=== PATIENT | female | born 1945 | race Caucasian/White ===

== ENCOUNTER → 2025-02-13 14:14 | Outpatient (REF) | payer MEDICARE, SELFPAY ==
[2025-02-13 16:31] LABS: INR 4.42; PT 41.6 Sec (11.4-14.6)
== END ==
LOC: REG 14:14
PROVIDERS: FAMILY PHYSICIAN Physician Assistant
DX: Z79.01 Long term (current) use of anticoagulants (principal)
CPT/HCPCS: 36415; 85610

== ENCOUNTER → 2025-03-13 13:57 | Outpatient (REF) | payer MEDICARE, SELFPAY ==
[2025-03-13 14:55] LABS: INR 1.79
== END ==
LOC: REG 13:57
PROVIDERS: ATTENDING PHYSICIAN Physician Assistant
DX: Z79.01 Long term (current) use of anticoagulants (principal); I48.0 Paroxysmal atrial fibrillation
CPT/HCPCS: 36415; 85610

== ENCOUNTER → 2025-03-27 07:34 | Outpatient (REF) | payer MEDICARE, SELFPAY ==
[2025-03-27 08:06] LABS: % Basophils 1.1 % (0-2); % Eosinophils 2.6 % (0-6); % Immature Granulocytes 0.2 % (0-0.5); % Lymphocytes 29.7 % (20.5-51.1); % Monocytes 7.5 % (1.7-9.3); % Neutrophils 58.9 % (42.2-75.2); Absolute Basophils 0.1 10^3/uL (0-0.2); Absolute Eosinophils 0.2 10^3/uL (0-0.7); Absolute Lymphocytes 1.9 10^3/uL (1.2-3.4); Absolute Monocytes 0.5 10^3/uL (0.1-0.6); Absolute Neutrophils 3.8 10^3/uL (1.4-6.5); Hematocrit 35.5 % (37.0-47.0); Hemoglobin 11.5 g/dL (12.0-16.0); Mean Corp Hgb Conc. 32.4 g/dL (33.0-37.0); Mean Corpuscular Hgb 29.5 pg (27.0-31.0); Mean Platelet Volume 8.9 fL (7.4-10.4); Nucleated Red Blood Cells % 0 %; Platelet Count 239 10^3/uL (130-400); Red Cell Dist. Width 12.8 % (11.5-14.5); White Blood Cell Count 6.4 10^3/uL (4.8-10.8)
[2025-03-27 08:09] LABS: INR 3.02; PT 31.2 Sec (11.4-14.6)
[2025-03-27 15:14] LABS: ALT (SGPT) 27 U/L (0-35); AST (SGOT) 35 U/L (14-36); Albumin 3.8 g/dl (3.5-5.0); Alkaline Phosphatase 84 U/L (38-126); Blood Urea Nitrogen 13 mg/dl (7-17); Calcium 9.2 mg/dl (8.4-10.2); Carbon Dioxide 28 mmol/L (22-30); Chloride 107 mmol/L (98-107); Glucose 93 mg/dl (70-99); HDL Cholesterol 50 mg/dl; LDL Cholesterol, Calculated 67 mg/dl; Sodium 142 mmol/L (135-145); Total Bilirubin 0.8 mg/dl (0.2-1.3); Total Cholesterol 140 mg/dl (50-199); Total Protein 6.2 g/dl (6.3-8.2); Triglyceride 115 mg/dl (10-149); Very Low Density Lipoprotein 23 mg/dl (0-30); eGFR > 60.00
== END ==
LOC: REG 07:34
PROVIDERS: ATTENDING PHYSICIAN Physician Assistant; FAMILY PHYSICIAN Family Medicine
DX: I48.0 Paroxysmal atrial fibrillation (principal); Z79.01 Long term (current) use of anticoagulants; I10 Essential (primary) hypertension; E78.2 Mixed hyperlipidemia; Z86.711 Personal history of pulmonary embolism; Z68.1 Body mass index [BMI] 19.9 or less, adult; R26.81 Unsteadiness on feet
CPT/HCPCS: 36415; 80053; 80061; 85025; 85610

== ENCOUNTER → 2025-04-10 14:13 | Outpatient (REF) | payer MEDICARE, SELFPAY | LOC: REG 14:13 | PROVIDERS: ATTENDING PHYSICIAN Physician Assistant | DX: Z79.01 Long term (current) use of anticoagulants (principal) | CPT/HCPCS: 36415; 85610 ==

== ENCOUNTER → 2025-05-08 10:53 | Outpatient (REF) | payer MEDICARE, SELFPAY ==
[2025-05-08 12:20] LABS: % Basophils 0.9 % (0-2); % Immature Granulocytes 0.1 % (0-0.5); % Lymphocytes 33.7 % (20.5-51.1); % Neutrophils 55.3 % (42.2-75.2); Absolute Basophils 0.1 10^3/uL (0-0.2); Absolute Eosinophils 0.2 10^3/uL (0-0.7); Absolute Lymphocytes 2.3 10^3/uL (1.2-3.4); Absolute Monocytes 0.5 10^3/uL (0.1-0.6); Absolute Neutrophils 3.7 10^3/uL (1.4-6.5); Hemoglobin 11.6 g/dL (12.0-16.0); Mean Corp Hgb Conc. 33.1 g/dL (33.0-37.0); Mean Corpuscular Hgb 29.1 pg (27.0-31.0); Mean Corpuscular Volume 87.7 fL (81.0-99.0); Mean Platelet Volume 9.3 fL (7.4-10.4); Nucleated Red Blood Cells % 0 %; Platelet Count 249 10^3/uL (130-400); Red Blood Cell Count 3.99 10^6/uL (4.20-5.40); Red Cell Dist. Width 12.4 % (11.5-14.5); White Blood Cell Count 6.7 10^3/uL (4.8-10.8)
[2025-05-08 12:36] LABS: INR 1.49; PT 18.2 Sec (11.4-14.6)
== END ==
LOC: REG 10:53
PROVIDERS: ATTENDING PHYSICIAN Physician Assistant
DX: Z79.01 Long term (current) use of anticoagulants (principal); I48.0 Paroxysmal atrial fibrillation
CPT/HCPCS: 36415; 85025; 85610

== ENCOUNTER → 2025-05-15 10:54 | Outpatient (REF) | payer MEDICARE, SELFPAY ==
[2025-05-15 11:31] LABS: INR 1.32; PT 16.6 Sec (11.4-14.6)
== END ==
LOC: REG 10:54
PROVIDERS: ATTENDING PHYSICIAN Physician Assistant
DX: Z79.01 Long term (current) use of anticoagulants (principal); I48.0 Paroxysmal atrial fibrillation
CPT/HCPCS: 36415; 85610

== ENCOUNTER → 2025-05-22 10:35 | Outpatient (REF) | payer MEDICARE, SELFPAY ==
[2025-05-22 11:27] LABS: INR 2.74; PT 28.9 Sec (11.4-14.6)
== END ==
LOC: REG 10:35
PROVIDERS: ATTENDING PHYSICIAN Nurse Practitioner Family
DX: Z79.01 Long term (current) use of anticoagulants (principal); I48.0 Paroxysmal atrial fibrillation
CPT/HCPCS: 36415; 85610

== ENCOUNTER → 2025-06-18 13:40 | Outpatient (REF) | payer MEDICARE, SELFPAY ==
[2025-06-18 16:08] LABS: Hematocrit 36.7 % (37.0-47.0); Hemoglobin 12.0 g/dL (12.0-16.0); Mean Corp Hgb Conc. 32.7 g/dL (33.0-37.0); Mean Corpuscular Volume 88.9 fL (81.0-99.0); Nucleated Red Blood Cells % 0 %; Platelet Count 280 10^3/uL (130-400); Red Cell Dist. Width 12.4 % (11.5-14.5)
[2025-06-18 16:17] LABS: INR 1.29; PT 16.6 Sec (11.4-14.6)
[2025-06-18 16:27] LABS: Iron 58 ug/dl (37-170)
[2025-06-18 16:36] LABS: Total Iron Binding Capacity 307 ug/dl (265-497)
[2025-06-18 17:04] LABS: Ferritin 43.3 ng/ml (11.1-264.0)
[2025-06-19 10:10] LABS: Vitamin D, 25-OH*** 115 ng/mL (30-80)
[2025-06-19 10:59] LABS: Folate > 20.0 ng/ml (2.76-20)
== END ==
LOC: HWLAB 13:40
PROVIDERS: ATTENDING PHYSICIAN Physician Assistant
DX: Z79.01 Long term (current) use of anticoagulants (principal); D64.9 Anemia, unspecified; Z79.899 Other long term (current) drug therapy
CPT/HCPCS: 36415; 82306; 82728; 82746; 83540; 83550; 85025; 85610

== ENCOUNTER → 2025-06-25 09:53 | Outpatient (REF) | payer MEDICARE, SELFPAY ==
[2025-06-25 12:00] LABS: INR 1.36; PT 17.0 Sec (11.4-14.6)
== END ==
LOC: HWLAB 09:53
PROVIDERS: ATTENDING PHYSICIAN Physician Assistant
DX: Z79.01 Long term (current) use of anticoagulants (principal); I48.0 Paroxysmal atrial fibrillation
CPT/HCPCS: 36415; 85610

== ENCOUNTER → 2025-07-02 09:26 | Outpatient (REF) | payer MEDICARE, SELFPAY ==
[2025-07-02 12:51] LABS: INR 1.15; PT 15.3 Sec (11.4-14.6)
== END ==
LOC: HWLAB 09:26
PROVIDERS: ATTENDING PHYSICIAN Physician Assistant
DX: Z79.01 Long term (current) use of anticoagulants (principal); I48.0 Paroxysmal atrial fibrillation
CPT/HCPCS: 36415; 85610

== ENCOUNTER → 2025-07-09 09:42 | Outpatient (REF) | payer MEDICARE, SELFPAY ==
[2025-07-09 11:30] LABS: INR 1.75; PT 20.9 Sec (11.4-14.6)
== END ==
LOC: HWLAB 09:42
PROVIDERS: ATTENDING PHYSICIAN Physician Assistant
DX: Z79.01 Long term (current) use of anticoagulants (principal); I48.0 Paroxysmal atrial fibrillation
CPT/HCPCS: 85610

== ENCOUNTER → 2025-07-16 09:44 | Outpatient (REF) | payer MEDICARE, SELFPAY ==
[2025-07-16 12:43] LABS: INR 1.91; PT 22.4 Sec (11.4-14.6)
== END ==
LOC: HWLAB 09:44
PROVIDERS: ATTENDING PHYSICIAN Physician Assistant
DX: Z79.01 Long term (current) use of anticoagulants (principal)
CPT/HCPCS: 36415; 85610

== ENCOUNTER → 2025-07-23 08:21 | Outpatient (REF) | payer MEDICARE, SELFPAY ==
[2025-07-23 09:54] LABS: INR 2.16; PT 24.5 Sec (11.4-14.6)
== END ==
LOC: HWLAB 08:21
PROVIDERS: ATTENDING PHYSICIAN Physician Assistant
DX: Z79.01 Long term (current) use of anticoagulants (principal); I48.0 Paroxysmal atrial fibrillation
CPT/HCPCS: 36415; 85610

== ENCOUNTER → 2025-08-06 09:14 | Outpatient (REF) | payer MEDICARE, SELFPAY ==
[2025-08-06 12:40] LABS: INR 2.50; PT 27.4 Sec (11.4-14.6)
== END ==
LOC: HWLAB 09:14
PROVIDERS: ATTENDING PHYSICIAN Physician Assistant
DX: Z79.01 Long term (current) use of anticoagulants (principal)
CPT/HCPCS: 36415; 85610

== ENCOUNTER → 2025-09-03 08:49 | Outpatient (REF) | payer MEDICARE, SELFPAY ==
[2025-09-03 12:57] LABS: INR 3.48; PT 35.3 Sec (11.4-14.6)
== END ==
LOC: HWLAB 08:49
PROVIDERS: ATTENDING PHYSICIAN Physician Assistant
DX: Z79.01 Long term (current) use of anticoagulants (principal)
CPT/HCPCS: 36415; 85610

== ENCOUNTER → 2025-09-17 08:31 | Outpatient (REF) | payer MEDICARE, SELFPAY ==
[2025-09-17 12:39] LABS: INR 2.91; PT 30.3 Sec (11.4-14.6)
== END ==
LOC: HWLAB 08:31
PROVIDERS: ATTENDING PHYSICIAN Physician Assistant
DX: Z79.01 Long term (current) use of anticoagulants (principal)
CPT/HCPCS: 36415; 85610

== ENCOUNTER → 2025-10-15 08:19 | Outpatient (REF) | payer MEDICARE, SELFPAY ==
[2025-10-15 10:47] LABS: INR 2.46; PT 27.1 Sec (11.4-14.6)
== END ==
LOC: HWLAB 08:19
PROVIDERS: ATTENDING PHYSICIAN Physician Assistant
DX: Z79.01 Long term (current) use of anticoagulants (principal)
CPT/HCPCS: 36415; 85610

== ENCOUNTER → 2025-11-12 09:31 | Outpatient (REF) | payer MEDICARE, SELFPAY ==
[2025-11-12 10:19] LABS: INR 3.93; PT 37.9 Sec (11.4-14.6)
== END ==
LOC: REG 09:31
PROVIDERS: ATTENDING PHYSICIAN Physician Assistant
DX: Z79.01 Long term (current) use of anticoagulants (principal)
CPT/HCPCS: 36415; 85610

== ENCOUNTER → 2025-11-25 10:17 | Outpatient (REF) | payer MEDICARE, SELFPAY ==
[2025-11-25 12:02] LABS: Hematocrit 36.1 % (37.0-47.0); Hemoglobin 12.1 g/dL (12.0-16.0); INR 3.02; Mean Corp Hgb Conc. 33.5 g/dL (33.0-37.0); Mean Corpuscular Volume 87.8 fL (81.0-99.0); Nucleated Red Blood Cells % 0 %; PT 30.8 Sec (11.4-14.6); Platelet Count 281 10^3/uL (130-400); Red Cell Dist. Width 12.0 % (11.5-14.5)
[2025-11-25 12:17] LABS: ALT (SGPT) 15 U/L (0-35); AST (SGOT) 27 U/L (14-36); Albumin 4.0 g/dl (3.5-5.0); Alkaline Phosphatase 95 U/L (38-126); Blood Urea Nitrogen 13 mg/dl (7-17); Calcium 9.0 mg/dl (8.4-10.2); Carbon Dioxide 26 mmol/L (22-30); Chloride 104 mmol/L (98-107); Glucose 91 mg/dl (70-99); HDL Cholesterol 52 mg/dl; LDL Cholesterol, Calculated 80 mg/dl; Potassium 4.5 mmol/L (3.5-5.1); Sodium 136 mmol/L (135-145); Total Protein 6.6 g/dl (6.3-8.2); Very Low Density Lipoprotein 19 mg/dl (0-30); eGFR > 60.00
== END ==
LOC: HWLAB 10:17
PROVIDERS: ATTENDING PHYSICIAN Physician Assistant
DX: Z79.01 Long term (current) use of anticoagulants (principal); I48.0 Paroxysmal atrial fibrillation; I10 Essential (primary) hypertension; E78.2 Mixed hyperlipidemia; Z86.711 Personal history of pulmonary embolism; M81.0 Age-related osteoporosis without current pathological fracture; Z87.81 Personal history of (healed) traumatic fracture; Z98.890 Other specified postprocedural states; M19.041 Primary osteoarthritis, right hand; R26.81 Unsteadiness on feet
CPT/HCPCS: 36415; 80053; 80061; 85025; 85610